=== PATIENT | female | born 1945 | race African-American/Black ===

== ENCOUNTER 2023-11-07 00:09 | Emergency (ER) | payer OTHER ==
[2023-11-07 00:42] VITALS: BP 130/67; PULSE 66; RESP 16; TEMP 98.3; BMI 26.6
[2023-11-07] MEDS ORDERED: ACETAMINOPHEN 325 MG TABLET (FP) PO ONE (01:33)
[2023-11-07] MEDS ORDERED: ACETAMINOPHEN 325 MG TABLET (FP) ONE (01:48)
[2023-11-07 02:28] LABS: BASO % 0.9 % (0-2.0); EOS % 4.2 % (0-4.5); HEMATOCRIT 39.6 % (32.4-45.2); HEMOGLOBIN 12.8 GM/dL (10.7-15.3); LYMPH % 25.1 % (8-40); MCH 26.8 pg (25.7-33.7); MCHC 32.2 g/dl (32.0-36.0); MEAN CELL VOLUME 83.2 fl (80-96); MEAN PLT VOLUME 8.6 fl (7.5-11.1); MONO % 9.3 % (3.8-10.2); NEUT % 60.5 % (42.8-82.8); PLATELET COUNT 190 10^3/uL (134-434); RBC 4.77 M/mm3 (3.60-5.2); RDW 13.7 % (11.6-15.6); WHITE BLOOD COUNT 6.1 K/mm3 (4.0-10.0)
[2023-11-07 02:43] LABS: INR 1.02 (0.83-1.09); POTASSIUM 3.7 mmol/L (3.5-5.1); PROTHROMBIN TIME (PATIENT) 11.8 SEC (9.7-13.0)
[2023-11-07 02:46] LABS: ACTIVATED PTT 30.7 SECONDS (25.2-36.5); ALBUMIN 3.6 g/dl (3.4-5.0); BLOOD UREA NITROGEN 22.5 mg/dL (7-18)
[2023-11-07 02:50] LABS: BILIRUBIN,TOTAL 0.3 mg/dL (0.2-1)
[2023-11-07 03:58] LABS: PH,URINE 5.5 (5.0-8.0); URINE APPEARANCE Clear; URINE BILIRUBIN Negative (NEGATIVE); URINE COLOR Yellow; URINE GLUCOSE (UA) Negative (NEGATIVE); URINE KETONE Negative (NEGATIVE); URINE LEUK ESTERASE Negative (NEGATIVE); URINE NITRITE Negative (NEGATIVE); URINE PROTEIN Negative (NEGATIVE); URINE UROBILINOGEN 0.2 mg/dL (0.2-1.0)
[2023-11-07 04:05] LABS: EPI CELLS 2.3 /uL (0-25.1); HYALINE CASTS 0.14 /uL (0-3.1); URINE RBC 3.3 /uL (0-23.9); URINE WBC 7.9 /uL (0-25.8)
[2023-11-07 04:06] LABS: URINE BACTERIA 0.9 /uL (0-1359)
== END 2023-11-07 10:14 | disposition home or self-care (01) ==
LOC: JER 00:09
DX: M25.511 Pain in right shoulder (principal); M54.6 Pain in thoracic spine
CPT/HCPCS: 36415; 71046-TC-FY; 71275-TC; 73030-TC-RT-FY; 74177-TC; 80053; 81003; 84484; 85025; 85610; 85730; 87086; 93005; 93010; 99285-25; Q9967